=== PATIENT | female | born 1945 | race Caucasian/White ===

== ENCOUNTER → 2021-07-19 09:01 | Outpatient (CLI) | payer MEDICARE, SELFPAY ==
--- NOTE | ~2021-07-19 | CT_ITS ---
EXAMINATION: CT abdomen pelvis wo con DATE: 07/19/2021 09:42 INDICATION: Nausea, weight loss. Status post cholecystectomy. TECHNIQUE: Computed tomography (CT) of the abdomen and pelvis was performed without intravenous contr ast. Automated exposure control and iterative reconstruction technique were employed. Exam dose: 220 .76 mGy-cm total exam DLP. COMPARISON: None. 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 The lung bases are kae ar of infiltrate or consolidation. Normal heart size. No pericardial or pleural effusion. Status post cholecystectomy. No hepatic, splenic, pancreatic, and adrenal or renal space-occupying ma ss lesion is evident on this limited noncontrast examination. There are pancreatic duct dilatation. There is a 2.2 mm calcification immediately adjacent to but not apparently within the distal left ure ter. If there is hematuria and concern for possible urinary tract obstructing calculus, consider repe at CT abdomen pelvis with IV contrast material. No other evidence of urinary tract calculus. The urin meagan bladder is unremarkable. Status post hysterectomy. Minimal sigmoid colon diverticulosis; no CT evidence of diverticulitis. No bowel obstruction, bowel w all thickening, pneumatosis or intraperitoneal free air. There is atherosclerotic calcification but normal caliber of the abdominal aorta. No intraperitoneal or retroperitoneal or pelvic mass lesion or adenopathy or ascites. Severe degenerative disc disease at L2-3 and L5-S1. Bilateral hip osteoarthritis. Suspicious osteolyt ic or osteoblastic lesions are noted. IMPRESSION: Status post cholecystectomy Status post hysterectomy Minimal sigmoid diverticulosis Reviewed, dictated and finalized at [facility] Reviewed, dictated and finalized at [facility].
== END ==
PROVIDERS: PCP Internal Medicine Infectious Disease; Visit Provider Internal Medicine Infectious Disease
DX: R11.0 Nausea (principal); R63.4 Abnormal weight loss; Z90.49 Acquired absence of other specified parts of digestive tract
CPT/HCPCS: 74176

== ENCOUNTER → 2021-10-13 12:11 | Outpatient (CLI) | payer MEDICARE, SELFPAY ==
--- NOTE | ~2021-10-13 | DEXA_ITS ---
Bone Density Report Name: NOE CONTRERAS Age: 76 Sex: Female Ethnicity: White Date of : 1945 Indication: postmenopausal; screening for osteoporosis; hysterectomy; Referring Provider: Ruth, Oswaldo Saleh Study: Bone densitometry was performed. Exam Date: October 13, 2021 Accession number: [id number] Bone Density: Region BMD T-score Z-score Classification AP Spine (L1-L4) 0.841 -1.9 0.5 Osteopenia Femoral Neck (Left) 0.626 -2.0 0.0 Osteopenia Total Hip (Left) 0.725 -1.8 0.0 Osteopenia Femoral Neck (Right) 0.916 0.6 2.7 Normal Total Hip (Right) 0.763 -1.5 0.3 Osteopenia Total Hip Mean 0.744 -1.7 0.2 Osteopenia World Health Organization criteria for BMD impression classify patients as: Normal (T-score at or above -1.0), Osteopenia (T-score between -1.0 and -2.5), or Osteoporosis (T-score at or below -2.5). 10-year Fracture Risk(1): Major Osteoporotic Fracture 10% Hip Fracture 2.7% Reported Risk Factors: [place] (), Neck BMD=0.626, BMI=18.4 (1) FRAX(R) Version 3.08. Fracture probability calculated for an untreated patient. Fracture probability may be lower if the patient has received treatment. Clinical Information Provided by Patient: Has used the following medications: Vitamin D, Calcium Has the following medical conditions: Hysterectomy Patient maximum height was 63.5 Menopause Age: 39 No regular weight bearing exercise Does not regularly consume dairy products Drinks caffeinated beverages Onset of menses at age 18 Number of children 2 Impression: The patient has low bone mass, based on the Left Femoral Neck T-score. The patient has an estimated ten-year risk of hip fracture of 2.7% and an estimated ten-year risk of major fracture of 10%, based on the WHO FRAX algorithm. Discussion: BONE DENSITY IS LOW AT ONE OR MORE SKELETAL SITES. This patient's lowest T-score is low at one or more skeletal sites. It meets the World Health Organization's (WHO) criteria for ?low bone mass? (T-score between -1.0 and -2.5). The patient's 10-year risk of fracture as calculated by FRAX is less than the threshold where pharmacological therapy is recommended by the National Osteoporosis Foundation (NOF). However, all treatment decisions require clinical judgment and consideration of individual patient factors, including patient preferences, comorbidities, previous drug use, risk factors not captured in the FRAX model (e.g., frailty, falls, vitamin D deficiency, increased bone turnover, interval significant decline in bone density) and possible under or overestimation of fracture risk by FRAX. The patient should follow a healthful lifestyle (good nutrition with adequate calcium and vitamin D, and appropriate weight-bearing exercise). Follow-Up: Consider repeating this study in 2 to 3 years to reassess
== END ==
PROVIDERS: PCP Internal Medicine Infectious Disease; Visit Provider Internal Medicine Infectious Disease
DX: Z78.0 Asymptomatic menopausal state (principal); M85.88 Other specified disorders of bone density and structure, other site; M85.852 Other specified disorders of bone density and structure, left thigh; M85.851 Other specified disorders of bone density and structure, right thigh
CPT/HCPCS: 77080

== ENCOUNTER 2024-06-10 10:38 | Outpatient (CLI) | payer MEDICARE, SELFPAY ==
--- NOTE | ~2024-06-10 | CT_ITS ---
Non-contrast CT scan of the Abdomen and Pelvis Clinical indication: Abdominal pain Technique: 2.5 mm axial scans were obtained through the abdomen and pelvis without intravenous or or al contrast. Dose reduction technique was used on this scan by utilizing automated exposure control a nd iterative reconstruction technique. The dose-length product (DLP) was 172.53 mGy-cm. COMPARISON: 07/19/2021 Findings: Images through the lung bases reveal no abnormalities. There is no evidence of renal or ureteral calculi. The kidneys and the ureters are nondilated. The liver, spleen, pancreas, and adrenals appear normal. Cholecystectomy clips are present. There are atherosclerotic calcifications of the aorta. . There is no evidence of bowel obstruction. Images through the pelvis were performed. There is no evidence of ascites or lymphadenopathy. Urinary bladder unremarkable. No pelvic mass seen. Impression: No acute abnormality. Reviewed, dictated and finalized at [facility]. Impression: No acute abnormality.
== END 2024-06-10 10:39 | disposition home or self-care (01) ==
LOC: MICIMG 10:41
PROVIDERS: PCP Internal Medicine Infectious Disease; Visit Provider Internal Medicine Infectious Disease
DX: R10.84 Generalized abdominal pain (principal); Z87.19 Personal history of other diseases of the digestive system
CPT/HCPCS: 74176